=== PATIENT | female | born 1990 | race Caucasian/White ===

== ENCOUNTER 2020-01-29 10:07 | Inpatient (IN) | payer SELFPAY ==
[~2020-01-29] VITALS: Ht 154.9 cm; Wt 93.4 kg
[2020-01-29 10:14] VITALS: BP 130/70
[2020-01-29] MEDS ORDERED: ACETAMINOPHEN EXTRA STRENGTH 500 MG TAB PO ONE (10:20)
--- NOTE | 2020-01-29 10:20 | NUR ---
PATIENT PRESENTS TO ED WITH COUGH FOR 5 DAYS AND BODY ACHES AND FEVER FOR 5 DAYS AND SOB FOR 3 DAYS. DENIES N/V/D; SKIN IS PINK/WARM/DRY; AAOX4 WITH EVEN AND STEADY GAIT; PT DENIES ANY CP AT THIS TIME; PATIENT STATES PAIN OF 7/10 AT THIS TIME; VSS; PATIENT POSITIONED FOR COMFORT; HOB ELEVATED; BEDRAILS UP X2; BED DOWN. ER MD MADE AWARE OF PT STATUS. PT IS IN THE ISO ROOM AND ON MONITOR.
[2020-01-29 10:47] LABS: BASOPHILS % (AUTO) 0.6 % (0.0-2.0); EOSINOPHILS % (AUTO) 0.2 % (0.0-4.0); HEMATOCRIT 38.5 % (36-48); HEMOGLOBIN 12.8 g/dL (12.0-16.0); LYMPHOCYTES % (AUTO) 15.8 % (20.5-51.1); MEAN CORPUSCULAR HEMOGLOBIN 29 pg (27-31); MEAN CORPUSCULAR HGB CONC 33 g/dL (33-37); MEAN CORPUSCULAR VOLUME 86.6 fL (80-94); MONOCYTES # (AUTO) 0.2 K/uL (0.8-1.0); MONOCYTES % (AUTO) 3.3 % (1.7-9.3); NEUTROPHILS # (AUTO) 4.9 K/uL (1.8-7.7); NEUTROPHILS % (AUTO) 80.1 % (42.2-75.2); PLATELET COUNT (AUTO) 199 K/uL (140-450); RED BLOOD CELL COUNT(AUTO) 4.44 MIL/uL (4.20-5.40); RED CELL DISTRIBUTION WIDTH 13.5 % (11.6-13.7); WHITE BLOOD COUNT (AUTO) 6.1 K/uL (4.8-10.8)
--- NOTE | 2020-01-29 10:48 | NUR ---
COVID SWAB AND FLU SWAB OBTAINED AT BEDSIDE AND SENT TO THE LAB.
[2020-01-29 11:07] LABS: LACTATE DEHYDROGENASE 247 U/L (81-234)
[2020-01-29 11:08] LABS: ALBUMIN 3.2 g/dL (3.4-5.0); ANION GAP 16.5 (8-16); CARBON DIOXIDE 25.9 mmol/L (21-32); CREATININE 0.8 mg/dL (0.6-1.3); POTASSIUM 3.4 mmol/L (3.5-5.1); TOTAL BILIRUBIN 0.4 mg/dL (0.0-1.0)
[2020-01-29 11:16] LABS: PROTHROMBIN TIME 10.3 secs (10.8-13.4)
[2020-01-29 11:26] LABS: C-REACTIVE PROTEIN QUANT 10.7 mg/dL (0.0-0.9)
--- NOTE | 2020-01-29 11:27 | NUR ---
XRAY IS AT BEDSIDE.
[2020-01-29] MEDS ORDERED: ACETAMINOPHEN EXTRA STRENGTH 500 MG TAB ONE (11:32)
[2020-01-29 12:31] LABS: APPEARANCE,URINE CLOUDY (CLEAR); BILIRUBIN,URINE NEGATIVE (NEGATIVE); BLOOD, URINE 2+ (NEGATIVE); COLOR,URINE YELLOW (YELLOW); LEUKOCYTE ESTERASE ,URINE NEGATIVE (NEGATIVE); NITRITE, URINE NEGATIVE (NEGATIVE); PH,URINE 5.5 (5.0-9.0); UGLUCOSE NEGATIVE (NEGATIVE)
[2020-01-29 12:51] LABS: RBC,URINE 11-20 (MOD) /HPF (0-5)
--- NOTE | 2020-01-29 12:59 | NUR ---
DR. FAIRBANKS IS RE-EVALUATING PT AT BEDSIDE AT THIS TIME.
[2020-01-29] MEDS ORDERED: AZITHROMYCIN 250 MG TAB PO ONE (13:05)
[2020-01-29] MEDS ORDERED: cefTRIAXone 1,000 MG VIAL ONE (13:07)
[2020-01-29] MEDS ORDERED: ALBUTEROL HFA MDI 90 MCG/ACTUATION 8 GM INH PRN (14:20)
[2020-01-29] MEDS ORDERED: MORPHINE SULFATE 2 MG/ML SYR IVP PRN (14:25)
[2020-01-29] MEDS ORDERED: ZOLPIDEM 5 MG TAB PO PRN (14:25)
[2020-01-29] MEDS ORDERED: DOCUSATE SODIUM 100 MG GELCAP PO PRN (14:25)
[2020-01-29] MEDS ORDERED: LORazepam 2 MG/ML VIAL IM/IVP PRN (14:25)
[2020-01-29] MEDS ORDERED: HYDROcodone/APAP 5/325 MG 1 TAB TAB PO PRN (14:25)
[2020-01-29] MEDS ORDERED: ACETAMINOPHEN 325 MG TAB PO PRN (14:25)
[2020-01-29] MEDS ORDERED: ONDANSETRON 4 MG/2 ML VIAL IM/IVP PRN (14:25)
--- NOTE | 2020-01-29 14:47 | NUR ---
LUNCH PROVIDED TO PT TO BEDSIDE.
[2020-01-29] MEDS ORDERED: guaiFENesin DM 200/20 MG-10 ML 10 ML UDC PO PRN (14:55)
[2020-01-29] MEDS: NACL 0.9% 1,000 ML IV SCH (15:07)
--- NOTE | 2020-01-29 15:08 | NUR ---
RECEIVED VERBAL ORDER FROM DR. PERRY TO ADJUST IV SALINE FLUID DOWN TO 40 MSH/HR.
[2020-01-29 15:35] LABS: BARBITURATE, URINE NEGATIVE ng/ml (NEG <=200); BENZODIAZEPINE, URINE NEGATIVE ng/mL (NEG <=200); CANNABINOID, URINE NEGATIVE ng/mL (NEG <=50); COCAINE, URINE NEGATIVE ng/mL (NEG <=300); OPIATE, URINE NEGATIVE ng/mL (NEG <=2000); PHENCYCLIDINE SCREEN,URINE NEGATIVE ng/mL (NEG <=25)
[2020-01-29 15:40] LABS: CHOL/HDL RATIO 3.8 (1-4.5); MAGNESIUM 1.8 mg/dL (1.8-2.4); PHOSPHORUS 2.5 mg/dL (2.5-4.9); THYROID STIMULATING HORMONE 0.57 uIU/mL (0.34-3.74)
[2020-01-29 16:40] VITALS: BP 97/59
[2020-01-29] MEDS ORDERED: POTASSIUM CHLORIDE 10 MEQ TABER PO ONE ×2 (16:40→20:14)
--- NOTE | 2020-01-29 16:40 | NUR ---
RECEIVED REPORT FROM ER NURSE INDIRA, FOR CONTINUITY OF CARE, PT IS STABLE, AAOX4, PT ON 3L NASAL CANNULA OXYGEN, PT HAS LEFT AC 20G INFUSING NORMAL SALINE AT 40 ML/H, SKIN INTACT, OBTAIN MRSA NARES SWAB, INTRODUCED PT TO THE ROOM, BED IN LOW POSITION, SAFETY MEASURES IN PLACE, CALL LIGHT WITHIN REACH.
--- NOTE | 2020-01-29 16:40 | NUR ---
Patient will be admitted to care of PNA, R/O COVID. Admited to TELE. Will go to room 127. Belongings list completed. Report to WIL NAGY.
--- NOTE | 2020-01-29 17:50 | NUR ---
PT RESTING IN BED, NO SIGNS OF DISTRESS NOTED, CALL LIGHT WITHIN REACH.
[2020-01-29] MEDS ORDERED: DEXAMETHASONE 4 MG/ML VIAL IVP ONE (18:35)
--- NOTE | 2020-01-29 19:19 | NUR ---
ENDORSE PT TO NIGHT NURSE FOR CONTINUITY OF CARE, PT IS STABLE
--- NOTE | 2020-01-29 19:21 | NUR ---
RECEIVED REPORT FROM DAY SHIFT NURSE, FOR CONTINUITY OF CARE. PT IS A&OX4. COVID +. RESPIRATIONS ARE EVEN AND UNLABORED, BREATHING TO 3L NC. SKIN COLOR APPROPRIATE FOR ETHNICITY. LAC 18G IV IS PATENT AND INTACT, AND RUNNING PER ORDERS. NO ACUTE DISTRESS NOTED. DROPLET PRECAUTIONS IN PLACE. TELE MONITOR ATTACHED. SAFETY MEASURES IN PLACE; CALL LIGHT WITHIN REACH, BED IN LOW POSITION. WILL CONTINUE TO MONITOR. Addendum: 01/29/20 at 1951 by Siobhan Ann RN *LAC 20G IV*
[2020-01-29] MEDS ORDERED: DEXAMETHASONE 10 MG/ML VIAL IVP ONE (19:55)
[2020-01-29 20:00] VITALS: BP 112/73
--- NOTE | 2020-01-29 20:16 | NUR ---
ORDERED MEDICATIONS GIVEN. PT TOLERATED PO MEDS WELL. MEDICATION EDUCATION PROVIDED. WITH PT VERBALIZING UNDERSTANDING. INFORMATION ON ADVANCED DIRECTIVES ALSO PROVIDED TO PT. PT GIVEN FRUIT CUPS, AND A COPY OF HER POSITIVE COVID-19 RESULT, AT HER REQUEST. NO ACUTE DISTRESS NOTED. WILL CONTINUE TO MONITOR.
--- NOTE | 2020-01-29 23:00 | NUR ---
PT COMPLAINS OF FEELING, "SWEATY". TEMPERATURE TAKEN; TEMP: 96.8 DEGREES F. SPO2: 91% ON 3 LPM VIA NC. NO ACUTE DISTRESS NOTED. WILL CONTINUE TO MONITOR.
[2020-01-30] VITALS: BP 101/63
--- NOTE | 2020-01-30 02:30 | NUR ---
BEDSIDE REPORT GIVEN TO WIL DIAZ. PT IS IN STABLE CONDITION.
--- NOTE | 2020-01-30 02:31 | NUR ---
RECEIVED BEDSIDE REPORT FROM VERNELL DE LA TORRE. PT IS SLEEPING COMFORTABLY IN BED WITH EYES CLOSED. RESPIRATIONS ARE EQUAL AND SHALLOW SAT 89 ON NC 3L O2. RR 20. SKIN INTACT PER RN. AMBULATORY IS AAOX4. ON ISOLATION PRECAUTION FOR COVID +. CALL LIGHT IS WITHIN REACH. WILL ROUND FREQUENTLY.
[2020-01-30 04:00] VITALS: BP 107/69
--- NOTE | 2020-01-30 04:30 | NUR ---
VITAL SIGNS ARE WITHIN NORMAL LIMITS. ALL NEEDS MET. CALL LIGHT IS WITHIN REACH. WILL CONTINUE TO MONITOR.
--- NOTE | 2020-01-30 07:12 | NUR ---
PATIENT HAS BEEN SCREENED AND CATEGORIZED MODERATE NUTRITION RISK. PATIENT WILL BE SEEN WITHIN 3-5 DAYS OF ADMISSION. 02/01/20-02/03/20 SONDRA FUENTES MS, RDN
--- NOTE | 2020-01-30 07:20 | NUR ---
GAVE BEDSIDE REPORT FROM DAY RN. PT ENDORSED IN STABLE CONDITION.
--- NOTE | 2020-01-30 07:25 | NUR ---
RECEIVED PT FROM CHILD PROTECTION SPECIALIST NURSEJOE, PT IS AWAKE AND LYING ON THE BED WITH IV LINE ON THE LAC G. 20 WITH IVF NS INFUSING AT 490ML/HR, PT IS ON O2 2L NC, ON DROPLET ISOLATION,DENIES PAIN AND NO SIGN OF DISTRESS NOTED. WILL MONITOR PT
[2020-01-30 08:00] VITALS: BP_SYST 91; BP_SYST 93; BP_DIAS 57; BP_DIAS 61
[2020-01-30] MEDS: DEXAMETHASONE 4 MG TAB PO SCH (08:35)
[2020-01-30] MEDS: ASCORBIC ACID 500 MG TAB PO SCH (08:37)
[2020-01-30] MEDS: ZINC SULF 220 MG CAP PO SCH (08:38)
[2020-01-30] MEDS: ENOXAPARIN 40 MG/0.4 ML SYR SUBQ SCH (08:39)
--- NOTE | 2020-01-30 08:39 | NUR ---
PT WAS GIVEN THE SCHEDULED AM MEDICATIONS NOW, TOLERATED, TEACHINGS ON NUTRITIONAL SUPPORT WAS GIVEN TO PT AND VERBALIZED UNDERSTANDING, WILL MONITOR PT.
[2020-01-30] MEDS ORDERED: AZITHROMYCIN 250 MG TAB PO SCH (09:00)
--- NOTE | 2020-01-30 11:40 | NUR ---
PT IS AWAKE AND WATCHING TV, V/S TAKEN AND IS STABLE, DENIES PAIN AND WILL MONITOR PT, O2 SATURATION IS AT 92%
[2020-01-30 12:00] VITALS: BP 91/57
--- NOTE | 2020-01-30 14:40 | NUR ---
PT WAS ASSISTED TO EAT NOW. O2 SATURATION IS AT 93%.
[2020-01-30] MEDS: NACL 0.9% 1,000 ML IV SCH (15:09)
[2020-01-30 16:00] VITALS: BP 91/61
--- NOTE | 2020-01-30 17:30 | NUR ---
PT IS RESTING NOW AND IS WATCHING TV, O2 SATURATION IS AT 93%
--- NOTE | 2020-01-30 19:25 | NUR ---
ENDORSED PT TO BULLET LUBRICANT MIXER NURSE FOR CONTINUITY OF CARE.
--- NOTE | 2020-01-30 19:30 | NUR ---
RECEIVED BEDSIDE REPORT FROM AM SHIFT RN FOR PT'S CONTINUITY OF CARE. PT IS SITTING UP IN BED, SATURATING AT 94% ON 3L NC. PT IS ON ISOLATION PRECAUTION FOR COVID POSITIVE, PT IS AWARE. SAFETY MEASURES IN PLACE, CALL LIGHT WITHIN REACH, AND ISOLATION PRECAUTION IN PLACE. WILL ASSESS AND CONTINUE TO MONITOR PT.
[2020-01-30 20:00] VITALS: BP 94/67
--- NOTE | 2020-01-30 21:00 | NUR ---
ASSESSED PT. PT DENIES ANY PAIN, STATES EXPERIENCES DIFFICULTY BREATHING UPON EXERTION. PT EDUCATION GIVEN RE: DIAGNOSIS, BREATHING EXERCISES, AND PLAN OF CARE. PT VERBALIZED UNDERSTANDING. PT CURRENTLY ON 3L NC, SATURATING AT 94%. WILL CONTINUE TO MONITOR.
[2020-01-31] VITALS: BP 96/57
--- NOTE | 2020-01-31 | NUR ---
PT ASLEEP WITH NO SIGNS OF DISTRESS. PT O2 SAT 93-94%.
[2020-01-31 04:00] VITALS: BP 96/57
--- NOTE | 2020-01-31 04:30 | NUR ---
VS CHECKED AND CHARTED. PT ASLEEP, WOKE UP AND DENIES ANY PAIN OR DISCOMFORT. WILL CONTINUE TO MONITOR PT.
--- NOTE | 2020-01-31 06:18 | NUR ---
PT AWAKE SITTING UP IN BED. STATES GETS SHORT OF BREATH UPON EXERTION, MOVEMENT, AND TALKING. BUT OTHERWISE NO SHORTNESS OF BREATH AT REST. REMINDED PT TO DO BREATHING EXERCISES. PT VERBALIZED UNDERSTANDING. WILL ENDORSE PT TO AM SHIFT RN FOR PT'S CONTINUITY OF CARE.
--- NOTE | 2020-01-31 07:29 | NUR ---
SHIFT REPORT RECEIVED FROM COCKTAIL LOUNGE MANAGER NURSE. PT IS RESTING IN BED. NO DISTRESS NOTED. WILL CONTINUE TO MONITOR. CALL LIGHT IN REACH.
[2020-01-31 08:00] VITALS: BP 92/52
--- NOTE | 2020-01-31 09:10 | NUR ---
PT IS SITTING BED AT THIS TIME RESPONSIVE. HAVING BREAKFAST PT TOOK MORNING MEDS. PT ON 3L NC. O2 @ 93%. NO COMPLAINS OF PAIN. PT IS AMBULATORY. SAFETY MEASURES IN PLACE. WILL CONTINUE TO MONITOR. CALL LIGHT IN REACH.
[2020-01-31] MEDS: DEXAMETHASONE 4 MG TAB PO SCH (09:11)
[2020-01-31] MEDS: ZINC SULF 220 MG CAP PO SCH (09:11)
[2020-01-31] MEDS: ASCORBIC ACID 500 MG TAB PO SCH (09:12)
[2020-01-31] MEDS: ENOXAPARIN 40 MG/0.4 ML SYR SUBQ SCH (09:12)
[2020-01-31 09:15] LABS: BASOPHILS % (AUTO) 0.2 % (0.0-2.0); EOSINOPHILS % (AUTO) 0.3 % (0.0-4.0); HEMATOCRIT 36.1 % (36-48); HEMOGLOBIN 11.9 g/dL (12.0-16.0); LYMPHOCYTES # (AUTO) 1.6 K/uL (2.5-16.5); LYMPHOCYTES % (AUTO) 16.4 % (20.5-51.1); MEAN CORPUSCULAR HEMOGLOBIN 29 pg (27-31); MEAN CORPUSCULAR HGB CONC 33 g/dL (33-37); MEAN CORPUSCULAR VOLUME 87.2 fL (80-94); MONOCYTES # (AUTO) 0.5 K/uL (0.8-1.0); NEUTROPHILS # (AUTO) 7.8 K/uL (1.8-7.7); NEUTROPHILS % (AUTO) 78.1 % (42.2-75.2); PLATELET COUNT (AUTO) 257 K/uL (140-450); RED BLOOD CELL COUNT(AUTO) 4.14 MIL/uL (4.20-5.40); RED CELL DISTRIBUTION WIDTH 13.1 % (11.6-13.7)
[2020-01-31 09:40] LABS: ALBUMIN 2.6 g/dL (3.4-5.0); ANION GAP 14.1 (8-16); CARBON DIOXIDE 25.1 mmol/L (21-32); CREATININE 0.8 mg/dL (0.6-1.3); POTASSIUM 3.2 mmol/L (3.5-5.1); TOTAL BILIRUBIN 0.4 mg/dL (0.0-1.0)
--- NOTE | 2020-01-31 11:08 | NUR ---
PT IS SITTING BED AT THIS TIME RESPONSIVE. PT SAYS SOB ON EXERTION. NO COMPLAINS OF PAIN. PT IS AMBULATORY. SAFETY MEASURES IN PLACE. WILL CONTINUE TO MONITOR. CALL LIGHT IN REACH.
[2020-01-31 12:00] VITALS: BP 93/56
--- NOTE | 2020-01-31 12:30 | NUR ---
PT IS HAVING LUNCH AT THIS TIME. PT IS ON 3L NC O2. SATS AT 94%. NO DISTRESS NOTED. WILL CONTINUE TO MONITOR. CALL LIGHT IN REACH.
[2020-01-31] MEDS: NACL 0.9% 1,000 ML IV SCH (14:15)
[2020-01-31 16:00] VITALS: BP 95/45
--- NOTE | 2020-01-31 19:25 | NUR ---
SHIFT REPORT GIVEN TO HOEING ROW BOSS NURSE. PT IN STABLE CONDITION. CALL LIGHT IN REACH
--- NOTE | 2020-01-31 19:30 | NUR ---
RECEIVED ENDORSEMENT FROM AM SHIFT RN. PATIENT IS SITTING ON BED. NO SOB. ON 3L NC SATTING AT 95%. AOX4. ASSESSMENT DONE. TELE MONITOR ATTACHED. NOTED LAC 20G, INTACT AND PATENT INFUSING IVF AT 40 CC/HR. DROPLET PRECAUTION OBSERVED. PLAN OF CARE WAS DISCUSSED. CALL LIGHT WITHIN REACH. WILL CONTINUE TO MONITOR.
[2020-01-31 20:00] VITALS: BP 103/64
[2020-02-01] VITALS: BP_SYST 89; BP_SYST 98; BP_DIAS 55; BP_DIAS 64
[2020-02-01 04:00] VITALS: BP 89/55
[2020-02-01 06:27] LABS: BASOPHILS % (AUTO) 0.3 % (0.0-2.0); EOSINOPHILS % (AUTO) 0.4 % (0.0-4.0); HEMATOCRIT 34.8 % (36-48); HEMOGLOBIN 11.5 g/dL (12.0-16.0); LYMPHOCYTES # (AUTO) 1.7 K/uL (2.5-16.5); LYMPHOCYTES % (AUTO) 22.9 % (20.5-51.1); MEAN CORPUSCULAR HEMOGLOBIN 29 pg (27-31); MEAN CORPUSCULAR HGB CONC 33 g/dL (33-37); MEAN CORPUSCULAR VOLUME 86.8 fL (80-94); MONOCYTES # (AUTO) 0.6 K/uL (0.8-1.0); MONOCYTES % (AUTO) 7.9 % (1.7-9.3); NEUTROPHILS # (AUTO) 5.1 K/uL (1.8-7.7); NEUTROPHILS % (AUTO) 68.5 % (42.2-75.2); PLATELET COUNT (AUTO) 275 K/uL (140-450); RED BLOOD CELL COUNT(AUTO) 4.01 MIL/uL (4.20-5.40); RED CELL DISTRIBUTION WIDTH 13.2 % (11.6-13.7); WHITE BLOOD COUNT (AUTO) 7.5 K/uL (4.8-10.8)
[2020-02-01 07:19] LABS: ALBUMIN 2.4 g/dL (3.4-5.0); ANION GAP 13.2 (8-16); CARBON DIOXIDE 25.3 mmol/L (21-32); CREATININE 0.8 mg/dL (0.6-1.3); POTASSIUM 3.5 mmol/L (3.5-5.1); TOTAL BILIRUBIN 0.3 mg/dL (0.0-1.0)
--- NOTE | 2020-02-01 07:20 | NUR ---
PATIENT IS STABLE THE WHOLE GLUE MAKER. NOT IN ANY DISTRESS. ENDORSED TO AM SHIFT RN FOR CONTINUITY OF CARE.
[2020-02-01 08:00] VITALS: BP 102/62
[2020-02-01] MEDS: DEXAMETHASONE 4 MG TAB PO SCH (08:21)
[2020-02-01] MEDS: ASCORBIC ACID 500 MG TAB PO SCH (08:21)
[2020-02-01] MEDS: ZINC SULF 220 MG CAP PO SCH (08:22)
[2020-02-01] MEDS: ENOXAPARIN 40 MG/0.4 ML SYR SUBQ SCH (08:23)
--- NOTE | 2020-02-01 09:00 | NUR ---
PT IS AWAKE AND RESPONSIVE AND SITTING IN BED AT THIS TIME. MORNING MEDICATIONS GIVEN. VITAL SIGNS NORMAL. O2 SATS 95%. NO COMPLAINS OF PAIN OR DISTRESS REPORTED. IV IN PLACE. WILL CONTINUE TO MONITOR. CALL LIGHT IN REACH.
--- NOTE | 2020-02-01 09:10 | NUR ---
BLOOD PRESSURE NOT GIVEN EXCEPT COZAAR DUE TO LOW BLOOD PRESSURE. NOTIFIED DR PITMTAN. Addendum: 02/01/20 at 1445 by Wilmer Barrientos RN WRONG PT DOCUMENTATION
--- NOTE | 2020-02-01 10:41 | NUR ---
ENGINEER REMOTE CONTROL DIESEL NOTE: SW WAS UNABLE TO MEET PATIENT AT BEDSIDE DUE TO MEDICAL CONDITION. SW CONTACTED [phone] BUT PHONE LINE WAS DISCONNECTED AND PATIENT'S SIGNIFICANT OTEHR NORM MEJIA [phone] BUT VM WAS FULL. SW WILL ATTEMPT TO CALL ROOM PHONE. Addendum: 02/01/20 at 1359 by Reid Christina SS [facility] Patient: Jean-Pierre Richardson : 1990 Age/Sex: 29/F Unit#: [id number] Room/Bed: 127/A User: Reid WILEY Date: 02/01/20 13:55 Type: CM Discharge Plan Assessment Patient's Orientation Person Situation Place Time Information Provided By PATIENT Comments SW WAS UNABLE TO MEET PATIENT AT BEDSIDE. SW CONTACTED PATIENT TELEPHONICALLY. Cold Press Operator, Realtionship and Phone Number NORM MEJIA SIGNIFICANT OTHER [phone] [facility] Power of Welding Machine Operator Submerged Arc No Does Patient Have a POLST No Identifying Problems No Social Work Triggers Is A Social Work Consult Needed No Mandate Report Filed No Explanation Of Identifying Problems PATIENT IS A 29-YEAR-OLD FEMALE ADMITTED FOR PNEUMONIA, HYPOXIA, AND COVID. PATIENT HAS NO PERTINENT PMHX. Admitted From Home Pre-Admission Level Of Functioning Status Independent/Ambulatory Prior Resources/Services Used In Last 12 Months No Prior Resources Used Prior DME No Prior DME Used Living Situation Lives With Friend/Other House Patient Had Caregiver No Home Support No Caregiver Issues Financial Issues No Known Financial Issue Factors/Needs No D/C Needs Identified Pt/Rep Participated In Discharge Plan Yes Patient/Family Agress With Discharge Plan Yes Discharge Plan Comments TENTATIVE DISCHARGE PLAN IS FOR PATIENT TO RETURN HOME. DC Plan Status Initiated
--- NOTE | 2020-02-01 11:30 | NUR ---
PT AMBULATED TO RESTROOM WITH OUT OXYGEN. TOLERATED WELL. NO SOB REPORTED. O2 SATS AFTER AMBULATION NOTED AT 93%. NO COMPLAINS OF PAIN OR DISTRESS REPORTED. IV IN PLACE. WILL CONTINUE TO MONITOR. CALL LIGHT IN REACH.
[2020-02-01 12:00] VITALS: BP 107/58
[2020-02-01] MEDS ORDERED: ASCO500T95 PO (12:08)
[2020-02-01] MEDS ORDERED: DEC4 PO (12:08)
[2020-02-01] MEDS ORDERED: ASPI-1822 PO (12:08)
--- NOTE | 2020-02-01 13:09 | NUR ---
SPOKE WITH PATIENT ABOUT HOME O2 SHE WAS AGREEABLE TO PAYING OUT OF POCKET FOR THE OXYGEN. I LET HER KNOW THAT IT WILL BE A CHARGE OF $150.00 SHE WAS AGREEABLE TO PAYING. FAXED REQUEST TO TOO AT [facility] WILL FOLLOW UP Addendum: 02/01/20 at 1411 by Lauren Mcdonough CM MICHAEL FROM [facility] REACHED OUT TO ME STATING THAT HE IS WORKING ON THE ORDER FOR HOME 02 AND HE WILL REACH OUT TO THE PATIENT FOR THE PAYMENT Addendum: 02/01/20 at 1537 by Lauren Mcdonough CM FOLLOWED UP WITH MICHAEL FROM [facility] THE HOME 02 IS DISPATCHED. ETA IS BETWEEN 5:00 PM -7:[address] YOON AND RN
--- NOTE | 2020-02-01 13:27 | NUR ---
OXYGEN ASSESSMENT DONE ON PATIENT. PT WITH OXYGEN SITTING O2 SATS AT 96%. WITHOUT OXYGEN AND WITHOUT EXERTION 93% TO 96%. WITHOUT OXYGEN AND WITH EXERTION 91% TO 93%. PT COMPLAINED OF CHEST TIGHTNESS WITHOUT OXYGEN AND WITH EXERTION.
[2020-02-01] MEDS: NACL 0.9% 1,000 ML IV SCH (14:17)
--- NOTE | 2020-02-01 15:16 | NUR ---
PT IS SITTING IN CHAIR AT THIS TIME. O2 SATS AT 96%. NO DISTRESS NOTED. WILL CONTINUE TO MONITOR. CALL LIGHT IN REACH.
[2020-02-01 16:00] VITALS: BP 101/57
--- NOTE | 2020-02-01 18:31 | NUR ---
PT WAS DISCHARGED TODAY. PT WAS SENT HOME WITH OXYGEN AT 3L NC O2. DISCHARGE INSTRUCTIONS GIVEN TO PATIENT. ID BAND REMOVED. IV REMOVED. NO ACTIVE BLEEDING NOTED. BELONGINGS WITH PATIENT. PT'S WAS SENT WITH HER FRIEND IN A PRIVATE VEHICLE. SKIN INTACT. VITAL SIGNS WERE NORMAL. PT WILL F/U WITH PCP UPON DISCHARGE. DUE TO COVID POSITIVE. PT WILL NOT SIGN DISCHARGE PAPERS.
== END 2020-02-01 18:20 | disposition home or self-care (01) | DRG 871 ==
LOC: EEVIPCON 10:07 → MED 10:07 → MMU 13:24
PROVIDERS: ADMIT General Practice; ATTEND General Practice
DX: A41.9 Sepsis, unspecified organism (principal); U07.1 COVID-19; J96.01 Acute respiratory failure with hypoxia; J12.89 Other viral pneumonia; E43 Unspecified severe protein-calorie malnutrition; Z87.891 Personal history of nicotine dependence; Z83.3 Family history of diabetes mellitus; Z80.3 Family history of malignant neoplasm of breast; E87.6 Hypokalemia
CPT/HCPCS: 36415; 36600; 71045; 80053; 80305; 81001; 82550; 82728; 82803; 83036; 83605; 83615; 83735; 83880; 84100; 84134; 84443; 84484; 85025; 85379; 85384; 85610; 85651; 85730; 86140; 87040; 87081; 87086; 87804; 93005; 96365; 99291; J0696; J1100; J1650; J7030; J7060; Q0092; U0003-CS